=== PATIENT | male | born 1995 | race African-American/Black ===

== ENCOUNTER 2017-02-05 14:50 | Emergency (ER) | payer MEDICAID ==
[~2017-02-05] VITALS: Ht 177.8 cm; Wt 100.0 kg
[2017-02-05] MEDS ORDERED: MORPHINE SULFATE 10 MG/ML CPJ IM ONE (15:30)
[2017-02-05] MEDS ORDERED: KETOROLAC 30MG/ML VIAL IM ONE (17:00)
[2017-02-05 21:20] VITALS: BP 120/61
== END 2017-02-05 21:22 | disposition home or self-care (01) ==
LOC: ER 15:07
DX: M79.602 Pain in left arm (principal); M54.2 Cervicalgia; R51 Headache; V49.88XA Car occupant (driver) (passenger) injured in other specified transport accidents, initial encounter; Y93.89 Activity, other specified; Y92.89 Other specified places as the place of occurrence of the external cause; Y99.8 Other external cause status
CPT/HCPCS: 70450; 72125; 73090; 73110; 96372; 99284; J1885; J2270; Z7610